=== PATIENT | female | born 1975 | race Caucasian/White ===

== ENCOUNTER 2021-11-11 12:50 | Outpatient (CLI) | payer OTHER | END 2021-11-11 12:51 | disposition home or self-care (01) | LOC: CSHMAMMO 12:50 | PROVIDERS: ATTEND Obstetrics & Gynecology | DX: N63.15 Unspecified lump in the right breast, overlapping quadrants (principal); N60.01 Solitary cyst of right breast | CPT/HCPCS: G0279 ==

== ENCOUNTER 2022-11-01 10:27 | Outpatient (CLI) | payer OTHER | END 2022-11-01 10:28 | disposition home or self-care (01) | LOC: CSHMAMMO 10:27 | PROVIDERS: ATTEND Family Medicine | DX: Z12.31 Encounter for screening mammogram for malignant neoplasm of breast (principal); Z80.3 Family history of malignant neoplasm of breast | CPT/HCPCS: 77063; 77067 ==